=== PATIENT | female | born 1975 | race Caucasian/White ===

== ENCOUNTER → 2018-01-07 | Outpatient (CLI) | payer OTHER | END | disposition home or self-care (01) | LOC: LAB 10:16 | PROVIDERS: ATTEND Preventive Medicine Preventive Medicine/Occupational Environmental Medicine | DX: Z02.1 Encounter for pre-employment examination (principal) | CPT/HCPCS: 36415; 86706; 86735; 86762; 86765; 86787 ==

== ENCOUNTER 2019-02-06 06:42 | Day surgery (SDC) | payer MEDICAID ==
[~2019-02-06] VITALS: Ht 172.7 cm; Wt 99.8 kg
[~2019-02-06 06:42] MED LIST: FLUO-125 PO; LEVO112T4 PO; NORE0.35 PO
[2019-02-06] MEDS ORDERED: SUCCINYLCHOLINE CHLORIDE 20 MG/ML 10ML VIAL IV ONE (06:57)
[2019-02-06] MEDS ORDERED: DOXAPRAM HCL 20 MG/ML 20ML VIAL INJ IV ONE (06:57)
[2019-02-06] MEDS ORDERED: ONDANSETRON HCL 4 MG/2 ML VIAL ONE (07:08)
[2019-02-06] MEDS ORDERED: SODIUM CHLORIDE LOCK 10 ML ONE (07:08)
[2019-02-06] MEDS ORDERED: PROPOFOL 10 MG/ML 20 ML IV ONE (07:08)
[2019-02-06] MEDS ORDERED: MIDAZOLAM HCL 1MG/1ML-2 ML VIAL ONE (07:08)
[2019-02-06] MEDS ORDERED: fentaNYL CITRATE 100 MCG/2 ML VL ONE (07:08)
[2019-02-06] MEDS ORDERED: KETOROLAC TROMETH 15 mg/ml 1ML VL IV ONE (07:30)
[2019-02-06] MEDS ORDERED: HYDROmorphone HCL 2 MG/ML VL IV PRN (07:30)
[2019-02-06] MEDS ORDERED: METOCLOPRAMIDE HCL 5MG/ml INJ 2ml VIAL IV ONE (07:30)
[2019-02-06] MEDS ORDERED: LIDOCAINE HCL 2% TOP JELLY 5ML TOP ONE (07:33)
[2019-02-06] MEDS ORDERED: LIDOCAINE 2% (LOCAL ANESTH.) PF 5ml SDV ONE (07:33)
[2019-02-06] MEDS ORDERED: ceFAZolin 1GM/50ML 50 ML IV ONE (07:46)
[2019-02-06] MEDS ORDERED: LACTATED RINGER'S 1,000 ML IV SCH (08:35)
[2019-02-06] MEDS ORDERED: ONDANSETRON HCL 4 MG/2 ML VIAL IV PRN (08:45)
[2019-02-06 09:42] VITALS: BP 115/66
== END 2019-02-06 09:50 | disposition home or self-care (01) ==
LOC: SUR 06:42
PROVIDERS: ATTEND Obstetrics & Gynecology
DX: N93.8 Other specified abnormal uterine and vaginal bleeding (principal); E03.9 Hypothyroidism, unspecified; E66.8 Other obesity; J45.909 Unspecified asthma, uncomplicated; Z90.49 Acquired absence of other specified parts of digestive tract; Z68.33 Body mass index [BMI] 33.0-33.9, adult; Z88.1 Allergy status to other antibiotic agents; Z88.8 Allergy status to other drugs, medicaments and biological substances; Z98.890 Other specified postprocedural states; Z98.51 Tubal ligation status; Z79.899 Other long term (current) drug therapy; Z87.59 Personal history of other complications of pregnancy, childbirth and the puerperium
CPT/HCPCS: 58563; 86850; 86900; 86901; 88305; J0330; J0690; J1170; J1885; J2001; J2250; J2405; J2704; J3010